=== PATIENT | female | born 1975 | race Caucasian/White ===

== ENCOUNTER 2017-08-29 12:09 | Observation (INO) | payer BC, SELFPAY ==
[2017-08-29] VITALS (14 sets, daily range): BP systolic 102–157; BP diastolic 57–94; PULSE 69–99; RESP 16–18; TEMP 36.7–37; O2SAT 96–100; BMI 44.4; BMI 44.3
--- NOTE | 2017-08-29 12:25 | EKG12_ITS ---
Test Reason : CP Blood Pressure : / mmHG Vent. Rate : 087 BPM Atrial Rate : 087 BPM P-R Int : 128 ms QRS Dur : 094 ms QT Int : 370 ms P-R-T Axes : 018 022 036 degrees QTc Int : 445 ms Normal sinus rhythm Normal ECG Confirmed by RENETTA RIVERS, LUZ MARINA ([id number]), editorial specialist NOMEY JIMÉNEZ ([id number]) on 08/31/2017 4:05:34 PM Referred By: MALISSA Confirmed By:LUZ MARINA JACKSON MD
--- NOTE | 2017-08-29 12:25 | RAD_ITS ---
STUDY: X-RAY CHEST REASON FOR EXAM: Female, 41 years old. Chest pain TECHNIQUE: Single view of the chest was obtained COMPARISON: None. FINDINGS: No lung consolidation, pleural effusion or pneumothorax. Cardiac size within normal limits. Osseous structures demonstrate no acute abnormalities. Degenerative changes in the thoracic spine. Slightly elevated right hemidiaphragm. Cardiac size slightly prominent. Aortic tortuosity RAD/Chest 1 View (Portable) IMPRESSION: No evidence for focal airspace disease Electronically Signed: Juancarlos Arnold, at 12:55 EST Tel , Service support ,
[2017-08-29] MEDS: Aspirin 81 MG TAB.CHEW 324 MG PO (12:40)
[2017-08-29] MEDS: 0.9% Normal Saline 1,000 ML 150 ML IV (12:40)
[2017-08-29 12:43] LABS: Absolute Lymphocyte Count 2.58 X10^3/ul (0.83-4.51); Absolute Neutrophil Count 5.2 X10^3/uL (2.0-7.7); Basophil# 0.04 X10^3/uL; Basophil% 0.4 % (0-1); Eosinophil# 0.29 X10^3/uL; Hemoglobin 13.7 g/dl (12.0-15.0); Lymphocyte # 2.58 X10^3/ul (4.0); Mean Corp Hgb Conc 33.4 g/gl (32-36); Mean Corpuscular Hgb 29.4 pg (27.0-32.0); Mean Platelet Vol. 9.9 fl (6.2-12.0); Monocyte# 1.41 X10^3/uL; Monocyte% 14.8 % (0-10); Neutrophil # 5.19 X10^3/uL (2.7-7.7); Neutrophil % 54.5 % (47-70); Platelet Count 309 K/mm3 (150-450); RBC Distribution Width CV 14.1 % (11.6-14.6); RBC Distribution Width SD 45.5 fl (35.1-43.9); Red Blood Count 4.66 M/mm3 (4.2-5.4); White Blood Count 9.5 K/mm3 (4.4-11.0)
[2017-08-29 12:48] LABS: POSITIVE COUNT NO; POSITIVE DIFFERENTIAL NO; POSITIVE MORPHOLOGY NO
[2017-08-29 12:49] LABS: D-Dimer Quantitative (DVT/PE) 0.42 FEU/ug/m (0.27-0.49)
[2017-08-29 12:54] LABS: Anion Gap 6 (5-15); BUN 18 mg/dL (7-18); BUN/Creat Ratio 23.9 RATIO (10-20); Calcium,Total 8.6 mg/dL (8.5-10.1); Chloride 108 mmol/L (98-107); Creatinine, Serum 0.75 mg/dL (0.55-1.02); EST Glomerular Filtration Rate 89 mL/min (>60); Est Glom Filt Rate - Afr Amer 108 mL/min (>60); Estimated Creatinine Clearance 84.38 ml/min; Glucose 89 mg/dL (74-106); Potassium 3.9 mmol/L (3.5-5.1); Sodium Level 141 mmol/L (136-145)
--- NOTE | 2017-08-29 13:06 | ED.DCSUM_ITS ---
- ER Visit Summary Date of Service: 08/29/17 Chief Complaint: [Chest pain History of Present Illness: The patient is a 41 F [presents to the emergency department chest discomfort that started yesterday. Patient describes a pressure across her chest and heaviness in both arms. Patient denies any nausea or vomiting. Patient does feel short of breath. Patient also states she was in the [facility] in June. She denies any swelling in her legs out of the ordinary. She has had a mild cough that started yesterday but has been dry. Patient denies any fever. Patient has never had discomfort like this before.] Physical Examination: [HEENT-PERRLA, EOMI. Cranial nerves II through XII grossly intact. TMs clear. Mucous membranes moist. No adenopathy. Cardiovascular-regular rate and rhythm without murmur or ectopy Lungs-clear to auscultation, chest wall stable without crepitus or subcu emphysema Abdomen-normoactive bowel sounds, soft, nontender, no rebound or rigidity, no peritoneal signs. Extremities-intact ?4, normal range of motion, normal pulses, atraumatic] Test Results: [EKG obtained on arrival shows sinus rhythm with a ventricular rate of 87 bpm with no acute ST segment changes. CBC with differential was normal. Chemistries were normal. Troponin was less than 0.02. D-dimer is normal at 0.42. Chest x-ray showed nothing acute.] Emergency Department Course and Treatment: [Patient received aspirin in the emergency department and was given sublingual nitro which reduced her pain from an 8 out of 10 down to a 2 out of 10. Patient had an inch of Nitropaste placed to the anterior chest wall.] Treatment Plan: [Admit for further workup and evaluation.] Disposition: [Admit] Impression: [Chest pain-rule out acute coronary syndrome] This note was generated with [employer] dictation software. It may contain incorrect words, spelling, and punctuation that were not noted in review of the chart prior to signing ED Disposition - Plan for ED Patient: Chief Complaint: Chest Pain Referrals: Rashid Jose [Primary Care Provider] -
--- NOTE | 2017-08-29 13:06 | HP.PCM_ITS ---
Problem List (1) Morbid obesity with BMI of 40.0-44.9, adult Status: Chronic (2) Hypothyroidism Status: Chronic Qualifiers: Hypothyroidism type: unspecified Qualified Code(s): E03.9 - Hypothyroidism , unspecified (3) History of pituitary tumor Status: Chronic (4) Chest pain Status: Acute Qualifiers: Chest pain type: unspecified Qualified Code(s): R07.9 - Chest pain, unspecified History of Present Illness Date of Admission: 08/29/17 Chief Complaint: Chest tightness, Dsypnea The patient is a 41 y/o F w/ PMHx: Hypothyroidism, Morbid Obesity, History of Pituitary who presents to the [facility] ED on 08/29/17 with complaint of the onset of chest pressure, noted to be primarily substernal with heaviness to BL UE and dyspnea, worse with exertional attempts, transient since day prior with occasional sharp stabbing pain from midsternal radiating to the left axilla. In the ED she notes improved of her discomfort with NG administration, 02/04-->08/07 , currently nearly resolved. In the ED work-up included EKG sinus rhythm without evidence of acute ischemia, CXR without acute process, unremarkable CBC and chemistry, cardiac enzyme set x 1 normal. In the ED patient was administered NG, ASA. Past Medical History Past Medical History (Chronic Problems): Chronic Problems Morbid obesity with BMI of 40.0-44.9, adult (Chronic) Hypothyroidism (Chronic) History of pituitary tumor (Chronic) Allergies No Known Allergies Allergy (Verified 08/29/17 12:10) Home Medications: Ambulatory Orders Medication Instructions Recorded Levothyroxine [Synthroid] 7 tab PO TH 08/29/17 Surgical History: - - ?3, appendectomy, carpal tunnel release bilaterally, bilateral tubal ligation, benign pituitary tumor resection via nasal. Psychiatric History: No pertinent psych hx BINMAN History: No pertinent BINMAN history Lives: Spouse/ Significant Other, With Family Smoking Status: Never smoker Tobacco Use: Non-smoker Alcohol: Occasional Drugs: None - *Family History Maternal History Items: - - Patient notes a maternal family history of breast cancer diagnosed in her 40s in addition to maternal grandfather with history of diabetes and heart disease. Paternal History Items: - - Notes father with a history of cancer, liver with history of polysubstance abuse using heroin and alcohol. Review of Systems Constitutional: Reports: Fatigue. Denies: Chills, Fever, Weight Change HEENT: Denies: Head Aches, Sinus Congestion, Sinus Drainage Cardiovascular: Reports: Chest Pain, Chest Pressure, Chest Tightness. Denies: Palpitations Respiratory: Reports: Shortness of Breath, Shortness of breath at rest, Shortness of breath upon exertion. Denies: Cough, Sputum production Gastrointestinal: Denies: Abdominal Pain, Nausea, Vomiting Genitourinary: Denies: Dysuria Musculoskeletal: Denies: Joint Pain, Joint Tenderness Skin: Denies: Rash, Wounds Neurological: Denies: Numbness, Tingling, Focal weakness Psychiatric: Denies: Anxiety, Depression, Homicidal Ideations, Suicidal Ideations Hematologic/ Lymphatic: Denies: Easy Bruising, Easy Bleeding VTE Information - Inpt Only VTE Present on Admission: No VTE Mechan Device Prophylaxis: SCD's VTE Pharm Prophylaxis ordered?: Yes Patient Problems: Active and Suspected Problems Chest pain (Acute) Subjective: Seated upright in the ED bed, notes improving discomfort, 8 initially-->2/10, no nearly resolved. Objective: Physical Examination: General: awake, alert, oriented x 3 and cooperative, seated upright in the ED bed in no apparent distress. Skin: normal color, turgor, no icterus, cyanosis. HEENT: AT/NC, EOMI, PERRLA, MMM, no carotid bruits or JVD noted. Lungs: Diminished, > bases, moderate effort, no rales, ronchi or wheezing, distant breath sounds. Heart: Regular rate and rhythm; no gallop, rub audible. Abdomen: soft, morbidly obese, NTTP, ND, normal BS, no HSM. Extremities: no cyanosis, clubbing, or edema. Neurological: patient awake, alert, oriented x 3; cognitive function intact; pupils equally reactive to light and accomodation; cranial nerves II-XII grossly normal, moving all 4 extremities, no focal deficits, strength preserved. Psychiatric: affect appears normal, no acute evidence of depressive or anxiety feelings. - Physical Exam Vital Signs Temp Pulse Resp BP Pulse Ox 98.6 F 74 16 122/81 H 100 08/29/17 12:10 08/29/17 12:53 08/29/17 12:37 08/29/17 12:53 03/04/18 12:37 Oxygen Delivery Method Room Air Weight: 258 lb 9.636 oz Body Mass Index (BMI) 44.4 Laboratory Tests Past 24 Hrs 08/29/17 08/29/17 08/29/17 12:22 12:22 12:22 WBC 9.5 RBC 4.66 Hgb 13.7 Hct 41.0 MCV 88.0 MCH 29.4 MCHC 33.4 RDW 14.1 RDW Differential 45.5 H Plt Count 309 MPV 9.9 Immature Gran % (Auto) 0.300 Neut % (Auto) 54.5 Lymph % (Auto) 27.0 [place] % (Auto) 14.8 H Eos % (Auto) 3.0 Baso % (Auto) 0.4 Absolute Neuts (auto) 5.2 Absolute Lymphs (auto) 2.58 Total Counted Not Reportable D-Dimer Quant (PE/DVT) 0.42 Sodium 141 Potassium 3.9 Chloride 108 H Carbon Dioxide 27.0 Anion Gap 6 BUN 18 Creatinine 0.75 Estim Creat Clear Calc 84.38 Est GFR (MDRD) Af Amer 108 Est GFR (MDRD) Non-Af 89 BUN/Creatinine Ratio 23.9 H Glucose 89 Calcium 8.6 Troponin I < 0.02 Assessment/Plan Active and Suspected Problems Chest pain (Acute) The patient is a 41 y/o F w/ PMHx: Hypothyroidism, Morbid Obesity, History of Pituitary who presents to the [facility] ED on 08/29/17 with complaint of the onset of chest pressure, noted to be primarily substernal with heaviness to BL UE and dyspnea, worse with exertional attempts, transient since day prior with occasional sharp stabbing pain from midsternal radiating to the left axilla. (1) Chest Pain: EKG sinus rhythm without evidence of acute ischemia, CXR without acute process, unremarkable CBC and chemistry, cardiac enzyme set x 1 normal. Will admit to CDU status, place on a monitored bed to assure no acute myocardial infarction with serial cardiac enzymes and EKGs. If cardiac enzymes remain unremarkable will plan AM stress ECHO. ASA, NG, morphine. FLP in AM. Mag pending. (2) Hypothyroidism: Continue home synthroid regimen, TSH and FT4 pending, notes has not been checked in ~ > 1 year. (3) Morbid Obesity: Weight loss and lifestyle changes encouraged, nutrition consulted. 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 Encouraged avoidance of oral intake/meals past midnight while on shifts. Encouraged following stress assessment start of outpatient regular daily aerobic activity. (4) History of Benign Pituitary Tumor: Notes s/p resection via nasal route. (5) DVT Prophylaxis: freddie Gaston Code Visit OBSV E&M: 57495 Initial observation care L3
[2017-08-29] MEDS: Nitroglycerin Oint 1 INCH PACKET TRANSDERM. (13:12)
[2017-08-29 15:01] LABS: Magnesium 2.2 mg/dL (1.6-2.6); T4 Free Direct 1.19 ng/dL (0.76-1.46); Thyroid Stim Hormone (TSH) 4.59 uIU/mL (0.358-3.74)
[2017-08-29] MEDS: Acetaminophen 325 MG Tablet 650 MG PO (17:45)
[2017-08-29] MEDS: Levothyroxine 75 MCG Tablet 525 MCG PO (19:00)
[2017-08-29] MEDS: 0.9% Normal Saline 1,000 ML 125 ML IV (20:57)
[2017-08-29] MEDS: Famotidine 20 MG Tablet PO (21:00)
[2017-08-30] VITALS (8 sets, daily range): BP systolic 112–144; BP diastolic 68–77; PULSE 74–94; RESP 16–18; TEMP 36.8–37.1; O2SAT 94–98
[2017-08-30 03:06] LABS: Absolute Lymphocyte Count 1.51 X10^3/ul (0.83-4.51); Absolute Neutrophil Count 7.6 X10^3/uL (2.0-7.7); Basophil# 0.02 X10^3/uL; Basophil% 0.2 % (0-1); Eosinophil# 0.37 X10^3/uL; Eosinophils% 3.4 % (0-5); Hematocrit 37.8 % (37-47); Hemoglobin 12.7 g/dl (12.0-15.0); Lymphocyte # 1.51 X10^3/ul (4.0); Mean Corp Hgb Conc 33.6 g/gl (32-36); Mean Corpuscular Hgb 29.4 pg (27.0-32.0); Mean Corpuscular Volume 87.5 fL (81-99); Mean Platelet Vol. 10.3 fl (6.2-12.0); Monocyte# 1.26 X10^3/uL; Monocyte% 11.7 % (0-10); Neutrophil # 7.62 X10^3/uL (2.7-7.7); Neutrophil % 70.4 % (47-70); Platelet Count 281 K/mm3 (150-450); RBC Distribution Width SD 44.5 fl (35.1-43.9); Red Blood Count 4.32 M/mm3 (4.2-5.4); White Blood Count 10.8 K/mm3 (4.4-11.0)
[2017-08-30 03:15] LABS: POSITIVE COUNT NO; POSITIVE DIFFERENTIAL NO; POSITIVE MORPHOLOGY NO
[2017-08-30 03:34] LABS: Anion Gap 13 (5-15); BUN 16 mg/dL (7-18); BUN/Creat Ratio 23.6 RATIO (10-20); Chloride 109 mmol/L (98-107); Cholesterol 162 mg/dL (200); Creatinine, Serum 0.68 mg/dL (0.55-1.02); EST Glomerular Filtration Rate 101 mL/min (>60); Est Glom Filt Rate - Afr Amer 122 mL/min (>60); Estimated Creatinine Clearance 93.07 ml/min; Glucose 115 mg/dL (74-106); High Density Lipoprotein 49 mg/dL; Potassium 3.9 mmol/L (3.5-5.1); Sodium Level 142 mmol/L (136-145); Triglycerides 102 mg/dL; Very Low Density Lipoprotein 20 mg/dL (5-40)
[2017-08-30] MEDS: 0.9% Normal Saline 1,000 ML 125 ML IV (04:53)
--- NOTE | 2017-08-30 05:55 | EKG12_ITS ---
Test Reason : AM EKG Blood Pressure : / mmHG Vent. Rate : 079 BPM Atrial Rate : 079 BPM P-R Int : 132 ms QRS Dur : 092 ms QT Int : 364 ms P-R-T Axes : 027 009 020 degrees QTc Int : 417 ms Normal sinus rhythm Normal ECG When compared with ECG of 29-AUG-2017 12:17, MANUAL COMPARISON REQUIRED, DATA IS UNCONFIRMED Confirmed by RENETTA RIVERS, LUZ MARINA ([id number]), editor farm journal NOEMY JIMÉNEZ ([id number]) on 09/01/2017 1:44:08 PM Referred By: ZOYA Confirmed By:LUZ MARINA JACKSON MD
[2017-08-30] MEDS: Aspirin E.C. 81 MG Tablet PO (08:08)
[2017-08-30] MEDS: Famotidine 20 MG Tablet PO (11:01)
[2017-08-30 12:12] LABS: Erythrocyte Sedimentation Rate 33 mm/hr (0-20)
[2017-08-30 12:38] LABS: Internal QC Validated? YES +Cl - CLEAR BKGD; Monotest Negative (Negative)
--- NOTE | 2017-08-30 12:39 | PCM.PN.HOSP ---
Patient Problems: Active and Suspected Problems Chest pain (Acute) Subjective: Still chest tightness and fatigue. Vitals/I&O's: Vital Signs Temp Pulse Resp BP Pulse Ox 37.1 C 93 16 120/76 97 08/30/17 11:00 08/30/17 11:33 08/30/17 11:00 08/30/17 11:00 08/30/17 11:00 Oxygen Delivery Method Room Air Weight: 117.2 kg Body Mass Index (BMI) 44.3 Intake and Output for Last 24 Hours 08/28/17 08/29/17 08/30/17 23:59 23:59 23:59 Intake Total 1290 / 1290 1595 / 1595 Balance 1290 / 1290 1595 / 1595 General: Alert HEENT: Atraumatic, Normocephalic Neck: No Nodes, Thyroid Normal Size and Texture Lungs: Clear to auscultation, Normal air movement, No rhonchi, No wheeze Cardiovascular: Regular rate, Regular Rhythm, Normal S1, Normal S2 Abdomen: Bowel Sounds Present, Soft, Non Tender, Non-Distended Extremities: No edema, No Calf Tenderness Laboratory Results 08/29/17 16:30: Troponin I < 0.02 08/29/17 20:40: Troponin I < 0.02 08/30/17 02:25: WBC 10.8, RBC 4.32, Hgb 12.7, Hct 37.8, MCV 87.5, MCH 29.4, MCHC 33.6, RDW 14.0, RDW Differential 44.5 H, Plt Count 281, MPV 10.3, Immature Gran % (Auto) 0.300, Neut % (Auto) 70.4 H, Lymph % (Auto) 14.0 L, [place] % (Auto) 11.7 H, Eos % (Auto) 3.4, Baso % (Auto) 0.2, Absolute Neuts (auto) 7.6, Absolute Lymphs (auto) 1.51, Total Counted Not Reportable 08/30/17 02:25: Sodium 142, Potassium 3.9, Chloride 109 H, Carbon Dioxide 20.0 L, Anion Gap 13, BUN 16, Creatinine 0.68, Estim Creat Clear Calc 93.07, Est GFR (MDRD) Af Amer 122, Est GFR (MDRD) Non-Af 101, BUN/Creatinine Ratio 23.6 H, Glucose 115 H, Calcium 8.0 L, Triglycerides 102, Cholesterol 162, LDL Cholesterol 93, VLDL Cholesterol 20, HDL Cholesterol 49 08/30/17 02:25: Troponin I < 0.02 08/30/17 02:25: ESR 33 H 08/30/17 02:25: Monoscreen Negative Current Medications Acetaminophen (Tylenol) 650 mg PO Q4H PRN PRN PRN Reason: Headache or Temp>100.5F Last Admin: 08/29/17 17:45 Dose: 650 mg Al Hydroxide/Mg Hydroxide (Mylanta Ii) 30 ml PO Q6H PRN PRN PRN Reason: Gastric burning Albuterol Sulfate (Ventolin Aerosols) 2.5 mg INHALATION Q2H PRN PRN PRN Reason: dyspnea, wheezing Aspirin (Ecotrin) 81 mg PO DAILY@0800 [facility] Last Admin: 08/30/17 08:08 Dose: 81 mg Enoxaparin Sodium (Lovenox) 40 mg SC DAILY@1000 [facility] Last Admin: 08/30/17 11:00 Dose: Not Given Famotidine (Pepcid) 20 mg PO BID [facility] Last Admin: 08/30/17 11:01 Dose: 20 mg Hydralazine HCl (Apresoline) 10 mg IV Q4H PRN PRN PRN Reason: SBP > 160 Sodium Chloride () 1,000 mls @ 125 mls/hr IV .Q8H [facility] Last Admin: 08/30/17 04:53 Dose: 125 mls/hr Levothyroxine Sodium (Synthroid) 525 mcg PO Q7D [facility] Last Admin: 08/29/17 19:00 Dose: 525 mcg Magnesium Hydroxide (Milk Of Magnesia) 30 ml PO DAILY PRN PRN PRN Reason: Constipation Morphine Sulfate (Morphine) 1 - 2 mg IV Q4H PRN PRN PRN Reason: Chest Pain Nitroglycerin (Nitrostat) 0.4 mg SUBLINGUAL Q5M PRN PRN Reason: CHEST PAIN Ondansetron HCl (Zofran) 4 mg IV Q8H PRN PRN PRN Reason: NAUSEA Oxycodone HCl (Oxyir) 5 - 10 mg PO Q4H PRN PRN PRN Reason: MOD-SEVERE PAIN (4-10/10) Promethazine HCl (Phenergan (Ll)) 12.5 mg IV Q6H PRN PRN PRN Reason: NAUSEA/VOMITING Assessment/Plan Active and Suspected Problems Chest pain (Acute) 1. Chest pain Cardiac workup has been negative. Stress test negative. 2. Fatigue Is really the patient's primary complaint she does have to mention that she was having chest pressure as well. D-dimer is negative, so no pulmonary embolism. Free T4 was normal so no hypothyroidism. I did order an ESR to evaluate for PMR which was slightly elevated, but less than 40. Check CRP, if normal, then likelihood of PMR very low, but if elevated prednisone. Monospot was negative.
--- NOTE | 2017-08-30 12:46 | PN_ITS ---
Patient Problems: Active and Suspected Problems Chest pain (Acute) Subjective: Still chest tightness and fatigue. Vitals/I&O's: Vital Signs Temp Pulse Resp BP Pulse Ox 37.1 C 93 16 120/76 97 08/30/17 11:00 08/30/17 11:33 08/30/17 11:00 08/30/17 11:00 08/30/17 11:00 Oxygen Delivery Method Room Air Weight: 117.2 kg Body Mass Index (BMI) 44.3 Intake and Output for Last 24 Hours 08/28/17 08/29/17 08/30/17 23:59 23:59 23:59 Intake Total 1290 / 1290 1595 / 1595 Balance 1290 / 1290 1595 / 1595 General: Alert HEENT: Atraumatic, Normocephalic Neck: No Nodes, Thyroid Normal Size and Texture Lungs: Clear to auscultation, Normal air movement, No rhonchi, No wheeze Cardiovascular: Regular rate, Regular Rhythm, Normal S1, Normal S2 Abdomen: Bowel Sounds Present, Soft, Non Tender, Non-Distended Extremities: No edema, No Calf Tenderness Laboratory Results 08/29/17 16:30: Troponin I < 0.02 08/29/17 20:40: Troponin I < 0.02 08/30/17 02:25: WBC 10.8, RBC 4.32, Hgb 12.7, Hct 37.8, MCV 87.5, MCH 29.4, MCHC 33.6, RDW 14.0, RDW Differential 44.5 H, Plt Count 281, MPV 10.3, Immature Gran % (Auto) 0.300, Neut % (Auto) 70.4 H, Lymph % (Auto) 14.0 L, [place] % (Auto) 11.7 H, Eos % (Auto) 3.4, Baso % (Auto) 0.2, Absolute Neuts (auto) 7.6, Absolute Lymphs (auto) 1.51, Total Counted Not Reportable 08/30/17 02:25: Sodium 142, Potassium 3.9, Chloride 109 H, Carbon Dioxide 20.0 L , Anion Gap 13, BUN 16, Creatinine 0.68, Estim Creat Clear Calc 93.07, Est GFR ( MDRD) Af Amer 122, Est GFR (MDRD) Non-Af 101, BUN/Creatinine Ratio 23.6 H, Glucose 115 H, Calcium 8.0 L, Triglycerides 102, Cholesterol 162, LDL Cholesterol 93, VLDL Cholesterol 20, HDL Cholesterol 49 08/30/17 02:25: Troponin I < 0.02 08/30/17 02:25: ESR 33 H 08/30/17 02:25: Monoscreen Negative Current Medications Acetaminophen (Tylenol) 650 mg PO Q4H PRN PRN PRN Reason: Headache or Temp>100.5F Last Admin: 08/29/17 17:45 Dose: 650 mg Al Hydroxide/Mg Hydroxide (Mylanta Ii) 30 ml PO Q6H PRN PRN PRN Reason: Gastric burning Albuterol Sulfate (Ventolin Aerosols) 2.5 mg INHALATION Q2H PRN PRN PRN Reason: dyspnea, wheezing Aspirin (Ecotrin) 81 mg PO DAILY@0800 [facility] Last Admin: 08/30/17 08:08 Dose: 81 mg Enoxaparin Sodium (Lovenox) 40 mg SC DAILY@1000 [facility] Last Admin: 08/30/17 11:00 Dose: Not Given Famotidine (Pepcid) 20 mg PO BID [facility] Last Admin: 08/30/17 11:01 Dose: 20 mg Hydralazine HCl (Apresoline) 10 mg IV Q4H PRN PRN PRN Reason: SBP > 160 Sodium Chloride () 1,000 mls @ 125 mls/hr IV .Q8H [facility] Last Admin: 08/30/17 04:53 Dose: 125 mls/hr Levothyroxine Sodium (Synthroid) 525 mcg PO Q7D [facility] Last Admin: 08/29/17 19:00 Dose: 525 mcg Magnesium Hydroxide (Milk Of Magnesia) 30 ml PO DAILY PRN PRN PRN Reason: Constipation Morphine Sulfate (Morphine) 1 - 2 mg IV Q4H PRN PRN PRN Reason: Chest Pain Nitroglycerin (Nitrostat) 0.4 mg SUBLINGUAL Q5M PRN PRN Reason: CHEST PAIN Ondansetron HCl (Zofran) 4 mg IV Q8H PRN PRN PRN Reason: NAUSEA Oxycodone HCl (Oxyir) 5 - 10 mg PO Q4H PRN PRN PRN Reason: MOD-SEVERE PAIN (4-10/10) Promethazine HCl (Phenergan (Ll)) 12.5 mg IV Q6H PRN PRN PRN Reason: NAUSEA/VOMITING Assessment/Plan Active and Suspected Problems Chest pain (Acute) 1. Chest pain * Cardiac workup has been negative. Stress test negative. 2. Fatigue * Is really the patient's primary complaint she does have to mention that she was having chest pressure as well. * D-dimer is negative, so no pulmonary embolism. Free T4 was normal so no hypothyroidism. I did order an ESR to evaluate for PMR which was slightly elevated, but less than 40. Check CRP, if normal, then likelihood of PMR very low, but if elevated prednisone. * Monospot was negative.
--- NOTE | 2017-08-30 14:22 | PCM.DC ---
- Discharge Diagnoses Current Active Problems: Current Active and Chronic Problems Morbid obesity with BMI of 40.0-44.9, adult (Chronic) Hypothyroidism (Chronic) History of pituitary tumor (Chronic) Chest pain (Acute) You will use the following diet at home:: No restrictions Your food should be the consistency of: Regular Your liquids should be the consistency of: Regular/Thin Discharge Activity: Return to Normal Activity Call your doctor if you observe: Fever of 101 or Higher, Shortness of breath, Chest pain Allergies/Adverse Reactions: Allergies No Known Allergies Allergy (Verified 08/29/17 12:10) Medications to take at Discharge Levothyroxine [Synthroid] 525 mcg PO Q7D 08/29/17 Prednisone 2 tab PO DAILY #60 tab 08/30/17 The following prescriptions were given: Prednisone 2 tab PO DAILY #60 tab Primary Care Physician: Rashid Jose [Primary Care Provider] - Within 2 Weeks Please Follow Up With: Lani Farrell MD - Rheumatology When: 3-4 weeks Proposed Discharge Date: 08/30/17
--- NOTE | 2017-08-30 14:24 | PCM.DC.SUM ---
Discharge Date and Diagnosis - Problem List Patient Problems: Active and Suspected Problems Chest pain (Acute) Date of Admission: 08/29/17 Date of Discharge: 08/30/17 - Primary Discharge Diagnosis Active and Suspected Problems Chest pain (Acute) - Secondary Discharge Diagnosis Chronic Problems Morbid obesity with BMI of 40.0-44.9, adult (Chronic) Hypothyroidism (Chronic) History of pituitary tumor (Chronic) Hospital Course and Treatment Imaging Results: 08/30/17 05:55 Stress Test Echo w/o Contrast [ECHO] Routine Operations: None Procedures: Stress test Summary of Care Provided: The patient is a 41 year old F presents with a seven-day history of fatigue. Patient has been very tired of this time but over the weekend, patient was presented with some chest pressure. Patient was brought in and underwent a cardiac evaluation with a stress test that was negative. The patient's main concern is just fatigue and not able to lift her arms above her head and sleeping 18 hours per day. A checked an ESR which was 33 in order CRP that was 20. Unclear if the patient has polymyalgia rheumatica or not but given her symptoms and the abnormal inflammatory markers I will like to treat her with 20 mg of prednisone daily. I did advise patient follow-up with rheumatology as well. Patient's inflammatory markers could also be elevated due to patient's underlying known psoriasis. Patient may need further rheumatologic workup based on her symptoms and if she would require additional testing as well. Discussed with the patient that the etiology of her fatigue is not known it could be viral but we did check a Monospot which was negative here. I did explain that her inflammatory markers could be elevated due to her psoriasis and currently has some active in her ear canal. But it is unclear. The patient will be discharged home with 20 mg of prednisone daily. Patient will follow up with the rheumatology for further evaluation. [] Discharge Diet: No Restrictions Discharge Activity: Return to Normal Activity Call your doctor if you observe: Fever of 101 or Higher, Shortness of breath, Chest pain Home Medications: Medications to take at Discharge Levothyroxine [Synthroid] 525 mcg PO Q7D 08/29/17 Prednisone 2 tab PO DAILY #60 tab 08/30/17 Following Prescrptions Were Given to Patient: Prednisone 2 tab PO DAILY #60 tab Primary Care Physician: Rashid Jose [Primary Care Provider] - Within 2 Weeks Please Follow Up With: Lani Farrell MD - Rheumatology When: 3-4 weeks Disposition: Home Minutes spent on discharge:: 32 Patient Condition:: Good Meaningful Use Info Meaningful Use Diagnoses (Choose all that apply): None applicable Code Visit OBSV E&M: 46406 Observation care discharge
== END 2017-08-30 15:10 | disposition home or self-care (01) ==
LOC: ED 13:11 → PCU 13:45
PROVIDERS: Admitting Provider Family Medicine; Emergency Provider Emergency Medicine; Family Provider Family Medicine; PCP Family Medicine
DX: R07.89 Other chest pain (principal); R06.02 Shortness of breath; E66.01 Morbid (severe) obesity due to excess calories; Z68.41 Body mass index [BMI] 40.0-44.9, adult; Z71.3 Dietary counseling and surveillance; E03.9 Hypothyroidism, unspecified; Z79.899 Other long term (current) drug therapy; L40.9 Psoriasis, unspecified
CPT/HCPCS: 36415; 71045; 80048; 80061; 83735; 84439; 84443; 84484; 85025; 85379; 85652; 86140; 86308; 93005; 93017; 93350; 96360; 96361; 97802; 99218; 99285; J7030; A4216; G0378

== ENCOUNTER → 2017-09-15 14:59 | Outpatient (CLI) | payer BC, SELFPAY ==
[2017-09-22 11:58] LABS: HPV Reflexed? NOT INDICATED
== END ==
PROVIDERS: Visit Provider Obstetrics & Gynecology
DX: Z12.4 Encounter for screening for malignant neoplasm of cervix (principal)
CPT/HCPCS: 88175; G0145

== ENCOUNTER → 2019-05-04 12:00 | Outpatient (CLI) | payer BC, SELFPAY ==
--- NOTE | 2019-05-04 12:03 | BI_ITS ---
MAMMOGRAPHY - BILATERAL SCREENING REASON FOR EXAM: Female, 43 years old. Routine annual screening examination. PERTINENT HISTORY: Mother with breast cancer. TECHNIQUE: Digital bilateral breast maggie (3D mammographic acquisition) in the CC and MLO projections. 2-D mediolateral oblique (MLO) and craniocaudad (CC) views of both breasts were obtained. CAD: Full Field Digital Mammography with Computer Added Detection was performed. COMPARISON: Comparison is made with prior study dated April 30, 2016 and March 08, 2015. FINDINGS: Breast Composition: There are scattered areas of fibroglandular density. There are no dominant masses or suspicious calcifications. Stable small benign-appearing bilateral axillary lymph nodes. No other significant abnormalities are identified. There has been no significant change since the prior study. BI/SCREEN MAMM (CAD) W/MAGGIE BILAT IMPRESSION: Stable bilateral screening mammogram. Yearly follow-up mammogram recommended. (A) ASSESSMENT CATEGORY: BIRADS Category 2: Benign. A letter regarding these results will be sent to the patient by the facility within 30 days. Approximately 10% of breast cancers are not detected by mammography. A normal mammogram should not delay biopsy of a clinically suspicious abnormality. [id number] Electronically Signed: Tyrese Charlton, at 13:52 EST , Service support ,
== END ==
PROVIDERS: Family Provider Family Medicine; PCP Family Medicine; Referring Provider Obstetrics & Gynecology; Visit Provider Obstetrics & Gynecology
DX: Z12.31 Encounter for screening mammogram for malignant neoplasm of breast (principal); Z80.3 Family history of malignant neoplasm of breast
CPT/HCPCS: 77063; 77067

== ENCOUNTER → 2020-06-10 12:38 | Outpatient (CLI) | payer BC, SELFPAY ==
--- NOTE | 2020-06-10 12:40 | BI_ITS ---
MAMMOGRAPHY - BILATERAL SCREENING REASON FOR EXAM: Female, 44 years old. Routine annual screening examination. PERTINENT HISTORY: Mother with breast cancer. TECHNIQUE: Digital bilateral breast maggie (3D mammographic acquisition) in the CC and MLO projections. 2-D mediolateral oblique (MLO) and craniocaudad (CC) views of both breasts were obtained. CAD: Full Field Digital Mammography with Computer Added Detection was performed. COMPARISON: Comparison is made with prior study dated 05/04/2019 and 04/30/2016. FINDINGS: Breast Composition: There are scattered areas of fibroglandular density. There are no dominant masses or suspicious calcifications. Stable benign appearing bilateral axillary lymph nodes. No other significant abnormalities are identified. There has been no significant change since the prior study. BI/SCREEN MAMM (CAD) W/MAGGIE BILAT IMPRESSION: Stable bilateral screening mammogram. Yearly follow-up mammogram recommended. (A) ASSESSMENT CATEGORY: BIRADS Category 2: Benign. A letter regarding these results will be sent to the patient by the facility within 30 days. Approximately 10% of breast cancers are not detected by mammography. A normal mammogram should not delay biopsy of a clinically suspicious abnormality. [id number] Electronically Signed: Tyrese Charlton, at 13:53 EST , Service support ,
[2020-06-14 17:02] LABS: HPV Reflexed? NOT INDICATED
== END ==
PROVIDERS: PCP Family Medicine; Referring Provider Obstetrics & Gynecology; Visit Provider Obstetrics & Gynecology
DX: Z12.31 Encounter for screening mammogram for malignant neoplasm of breast (principal); Z12.4 Encounter for screening for malignant neoplasm of cervix
CPT/HCPCS: 77063; 77067; 88175; G0145

== ENCOUNTER 2021-09-11 10:46 | Outpatient (CLI) | payer BC, SELFPAY ==
--- NOTE | 2021-09-11 10:48 | BI_ITS ---
MAMMOGRAPHY - BILATERAL SCREENING 3-D TOMOSYNTHESIS REASON FOR EXAM: Female, 45 years old. SCREENING PERTINENT HISTORY: No significant family history. TECHNIQUE: 2-D mammograms and 3-D Tomosynthesis of the breast (s) were performed. CAD was performed. COMPARISON: 06/10/2020 FINDINGS: The breast composition is composed of scattered fibroglandular density. Scattered benign calcifications are seen. No dense spiculated masses or suspicious microcalcifications are identified. No architectural distortion is identified. There is no skin thickening or retraction. There has been no significant change since the prior study. BI/SCRN MAMM (CAD)W/MAGGIE BILAT IMPRESSION: No mammographic signs of malignancy. Routine yearly mammograms recommended. ASSESSMENT CATEGORY: BIRADS Category 1: Negative. A letter regarding these results will be sent to the patient by the facility within 30 days. FOLLOW UP RECOMMENDATION: Yearly follow up mammogram recommended. (A) Approximately 10% of breast cancers are not detected by mammography. A normal mammogram should not delay biopsy of a clinically suspicious abnormality. Electronically Signed: Sam Brice MD at 13:00 EDT ,
== END 2021-09-11 23:59 | disposition home or self-care (01) ==
LOC: OPBI 10:47
PROVIDERS: PCP Family Medicine; Visit Provider Obstetrics & Gynecology
DX: Z12.31 Encounter for screening mammogram for malignant neoplasm of breast (principal)
CPT/HCPCS: 77063; 77067

== ENCOUNTER → 2023-01-27 | Outpatient (CLI) | payer BC, SELFPAY ==
[2023-01-27 16:43] LABS: Bacteria 0 SEEN /hpf (None Seen); Red Blood Cells-Urine 0 SEEN /hpf (0-5); White Blood Cells 0 SEEN /hpf (0-5)
[2023-01-27 17:35] LABS: Color, Urine Yellow (Yellow); Glucose, Dipstick Normal (Normal); Ketone-Dipstick Negative (Negative); Leukocyte Esterase-Dipstick Negative /ul (Negative); Nitrite-Dipstick Negative (Negative); Occult Blood-Urine 25 /ul (Negative); Protein-Dipstick 15 mg/dl (Negative); Specific Gravity, Urine 1.025 (1.002-1.030); Urine Bilirubin Dipstick Negative (Negative); Urine Clarity Clear (Clear); Urine Urobilinogen Normal (Normal)
[2023-01-27 17:46] LABS: Calcium Oxalate Crystals Ur RARE /hpf (<or=2+); Mucous, Urine RARE /hpf (<or=2+); Squamous Epithelial Cells - UA 0-5 SEEN /hpf (5-10)
== END | disposition home or self-care (01) ==
PROVIDERS: PCP Family Medicine; Visit Provider Physician Assistant Surgical
DX: R39.15 Urgency of urination (principal)
CPT/HCPCS: 81001; 87086; 87088

== ENCOUNTER → 2023-02-01 | Outpatient (CLI) | payer BC, SELFPAY ==
[2023-02-01 11:15] LABS: Absolute Lymphocyte Count 1.85 X10^3/uL (0.83-4.51); Absolute Neutrophil Count 7.4 X10^3/uL (2.0-7.7); Basophil# 0.06 X10^3/uL; Basophil% 0.6 % (0-1); Eosinophil# 0.09 X10^3/uL; Eosinophils% 0.9 % (0-5); Hematocrit 41.9 % (37-47); Lymphocyte # 1.85 X10^3/ul (0.83-4.51); Lymphocyte % 18.4 % (19-41); Mean Corp Hgb Conc 33.4 g/dL (32-36); Mean Corpuscular Hgb 28.9 pg (27.0-32.0); Mean Corpuscular Volume 86.6 fL (81-99); Mean Platelet Vol. 10.1 fl (6.2-12.0); Monocyte# 0.68 X10^3/uL; Monocyte% 6.8 % (0-10); NRBC Flagged by Analyzer 0 % (0-5); Neutrophil # 7.35 X10^3/uL (2.7-7.7); Platelet Count 396 K/mm3 (150-450); RBC Distribution Width CV 14.2 % (11.6-14.6); RBC Distribution Width SD 45.1 fl (35.1-43.9); Red Blood Count 4.84 M/mm3 (4.2-5.4); White Blood Count 10.1 K/mm3 (4.4-11.0)
[2023-02-01 11:41] LABS: Estradiol 165.2 pg/mL; Follicle Stimulating Hormone 17.3 mIU/mL; Prolactin 8.9 ng/mL; T4 Free Direct 1.52 ng/dL (0.76-1.46); Thyroid Stim Hormone (TSH) 2.13 uIU/mL (0.358-3.74)
[2023-02-04 15:08] LABS: HPV APTIMA, High Risk Negative (Negative)
== END | disposition home or self-care (01) ==
LOC: WOBLAB 09:31
PROVIDERS: PCP Family Medicine; Visit Provider Nurse Practitioner Women's Health
DX: Z01.419 Encounter for gynecological examination (general) (routine) without abnormal findings (principal); N93.9 Abnormal uterine and vaginal bleeding, unspecified
CPT/HCPCS: 36415; 82670; 83001; 83002; 84146; 84439; 84443; 85025; 87624; 88175; G0145

== ENCOUNTER → 2023-02-03 | Outpatient (CLI) | payer BC, SELFPAY ==
--- NOTE | 2023-02-03 15:15 | BI_ITS ---
MAMMOGRAPHY - BILATERAL SCREENING REASON FOR EXAM: Female, 47 years old. Routine annual screening examination. PERTINENT HISTORY: Mother with breast cancer. TECHNIQUE: Digital bilateral breast maggie (3D mammographic acquisition) in the CC and MLO projections. 2-D mediolateral oblique (MLO) and craniocaudad (CC) views of both breasts were obtained. CAD: Full Field Digital Mammography with Computer Added Detection was performed. COMPARISON: Comparison is made with prior study September 11, 2021 and June 10, 2020. FINDINGS: Breast Composition: There are scattered areas of fibroglandular density. There are no dominant masses or suspicious calcifications. Stable benign-appearing bilateral axillary lymph nodes. No other significant abnormalities are identified. There has been no significant change since the prior study. BI/SCRN MAMM (CAD)W/MAGGIE BILAT IMPRESSION: Stable bilateral screening mammogram. Yearly follow-up mammogram recommended. (A) ASSESSMENT CATEGORY: BIRADS Category 2: Benign. A letter regarding these results will be sent to the patient by the facility within 30 days. Approximately 10% of breast cancers are not detected by mammography. A normal mammogram should not delay biopsy of a clinically suspicious abnormality. [id number] Electronically Signed: Tyrese Charlton MD at 8:30 EDT ,
== END | disposition home or self-care (01) ==
LOC: OPBI 15:14
PROVIDERS: PCP Family Medicine; Referring Provider Nurse Practitioner Women's Health; Visit Provider Nurse Practitioner Women's Health
DX: Z12.31 Encounter for screening mammogram for malignant neoplasm of breast (principal); Z80.3 Family history of malignant neoplasm of breast
CPT/HCPCS: 77063; 77067

== ENCOUNTER → 2023-11-11 | Outpatient (CLI) | payer BC, SELFPAY ==
[2023-11-11 15:01] LABS: Absolute Lymphocyte Count 2.07 X10^3/uL (0.83-4.51); Absolute Neutrophil Count 5.5 X10^3/uL (2.0-7.7); Basophil# 0.09 X10^3/uL; Eosinophil# 0.76 X10^3/uL; Eosinophils% 8.3 % (0-5); Hematocrit 41.6 % (37-47); Hemoglobin 13.5 g/dL (12.0-15.0); Lymphocyte # 2.07 X10^3/ul (0.83-4.51); Lymphocyte % 22.5 % (19-41); Mean Corp Hgb Conc 32.5 g/dL (32-36); Mean Corpuscular Hgb 28.5 pg (27.0-32.0); Mean Corpuscular Volume 87.9 fL (81-99); Mean Platelet Vol. 11.2 fl (6.2-12.0); Monocyte# 0.72 X10^3/uL; Monocyte% 7.8 % (0-10); NRBC Flagged by Analyzer 0 % (0-5); Neutrophil # 5.52 X10^3/uL (2.7-7.7); Neutrophil % 60.1 % (47-70); Platelet Count 350 K/mm3 (150-450); Red Blood Count 4.73 M/mm3 (4.2-5.4); White Blood Count 9.2 K/mm3 (4.4-11.0)
[2023-11-11 15:24] LABS: ALB/GLOB Ratio 0.8 RATIO (0.9-2.4); AST(SGOT) 11 U/L (15-37); Alanine Aminotransfer ALT/SGPT 17 U/L (13-56); Albumin, Serum 3.3 g/dL (3.2-5.0); Alkaline Phosphatase 64 U/L (45-117); Anion Gap 5 (5-15); BUN 16 mg/dL (7-18); BUN/Creat Ratio 20.6 RATIO (10-20); Calcium,Total 9.2 mg/dL (8.5-10.1); Chloride 105 mmol/L (98-107); Cholesterol 187 mg/dL (200); Creatinine, Serum 0.78 mg/dL (0.55-1.02); EST Glomerular Filtration Rate 84 mL/min (>60); Est Glom Filt Rate - Afr Amer 101 mL/min (>60); Globulin 4.2 g/dL (2.2-4.2); Glucose 97 mg/dL (74-106); High Density Lipoprotein 60 mg/dL; Potassium 3.7 mmol/L (3.5-5.1); Protein, Total 7.5 g/dL (6.4-8.2); Rheumatoid Factor < 10.0 IU/mL (<15); Sodium Level 139 mmol/L (136-145); T4 Total, Thyroxin 6.7 ug/dL (4.8-13.9); Thyroid Stim Hormone (TSH) 1.66 uIU/mL (0.358-3.74); Triglycerides 123 mg/dL; Very Low Density Lipoprotein 25 mg/dL (5-40)
[2023-11-11 18:06] LABS: Vitamin D,25 Hydroxy 46.9 ng/mL
[2023-11-15 15:32] LABS: ANTINUCLEAR ANTIBODIES DIRECT Negative (Negative)
== END | disposition home or self-care (01) ==
LOC: MTLAB 12:48
PROVIDERS: PCP Family Medicine; Referring Provider Family Medicine; Visit Provider Family Medicine
DX: Z13.220 Encounter for screening for lipoid disorders (principal); E55.9 Vitamin D deficiency, unspecified; M19.90 Unspecified osteoarthritis, unspecified site; E03.9 Hypothyroidism, unspecified
CPT/HCPCS: 36415; 80053; 80061; 82306; 84436; 84443; 85025; 86038; 86431

== ENCOUNTER → 2024-11-09 | Outpatient (CLI) | payer BC, SELFPAY ==
[2024-11-09 17:52] LABS: Absolute Lymphocyte Count 2.23 X10^3/uL (0.83-4.51); Absolute Neutrophil Count 5.9 X10^3/uL (2.0-7.7); Basophil# 0.08 X10^3/uL; Basophil% 0.8 % (0-1); Eosinophil# 0.27 X10^3/uL; Eosinophils% 2.9 % (0-5); Hematocrit 41.3 % (37-47); Hemoglobin 13.9 g/dL (12.0-15.0); Lymphocyte # 2.23 X10^3/ul (0.83-4.51); Lymphocyte % 23.5 % (19-41); Mean Corp Hgb Conc 33.7 g/dL (32-36); Mean Corpuscular Hgb 29.5 pg (27.0-32.0); Mean Corpuscular Volume 87.7 fL (81-99); Mean Platelet Vol. 10.2 fl (6.2-12.0); Monocyte% 10.6 % (0-10); NRBC Flagged by Analyzer 0 % (0-5); Neutrophil # 5.86 X10^3/uL (2.7-7.7); Neutrophil % 61.9 % (47-70); Platelet Count 445 K/mm3 (150-450); RBC Distribution Width CV 13.8 % (11.6-14.6); RBC Distribution Width SD 44.3 fl (35.1-43.9); Red Blood Count 4.71 M/mm3 (4.2-5.4); White Blood Count 9.5 K/mm3 (4.4-11.0)
[2024-11-09 18:29] LABS: ALB/GLOB Ratio 1.4 RATIO (0.9-2.4); AST(SGOT) 21 U/L (<=31); Alanine Aminotransfer ALT/SGPT 17 U/L (<=34); Albumin, Serum 4.3 g/dL (3.5-5.0); Alkaline Phosphatase 62 U/L (35-104); Anion Gap 13 (5-15); BUN 12 mg/dL (4-19); Calcium,Total 9.9 mg/dL (7.6-11.0); Carbon Dioxide 24.1 mmol/L (21.0-32.0); Chloride 105 mmol/L (98-108); Creatinine, Serum 0.93 mg/dL (0.70-1.20); EST Glomerular Filtration Rate 75 (>60); Globulin 3.1 g/dL (2.2-4.2); Glucose 89 mg/dL (70-99); Potassium 3.6 mmol/L (3.3-5.1); Protein, Total 7.4 g/dL (5.9-8.4); Sodium Level 141 mmol/L (133-145); Total Bilirubin 0.63 mg/dL (0.00-1.30); Vitamin D,25 Hydroxy 36.6 ng/mL (30-100)
== END | disposition home or self-care (01) ==
PROVIDERS: PCP Family Medicine
DX: Z00.00 Encounter for general adult medical examination without abnormal findings (principal)
CPT/HCPCS: 36415; 80053; 82306; 84443; 85025